=== PATIENT | male | born 1980 | race Caucasian/White ===

== ENCOUNTER 2018-10-02 16:06 | Inpatient (IN) | payer OTHER ==
[~2018-10-02] VITALS: Ht 180.3 cm; Wt 101.8 kg
--- NOTE | 2018-10-02 16:16 | NUR ---
PT TO ED WITH ELIZA FOR LOWER RIGHT ABD CELLULITIS AND LESION X3 DAYS. NO FEVER. PAIN 5/10. CONNECTED TO MONITORS. VSS. AWAITING MD ASSESSMENT. NO NEEDS AT THIS TIME. CALL LIGHT WITHIN REACH. ELIZA AT BEDSIDE.
--- NOTE | 2018-10-02 17:19 | NUR ---
Resting in [facility]. Provided with blanket. No other needs.
--- NOTE | 2018-10-02 17:50 | NUR ---
pt resting in room with meghan at bedside. no needs at this time. call light within reach. vss. awaiting md orders.
[2018-10-02] MEDS ORDERED: CLINDAMYCIN PMX 900MG/50ML 50 ML IV ONE (17:55)
[2018-10-02] MEDS ORDERED: SODIUM CHLORIDE FLUSH 10ML SYR IVF ONE (18:00)
[2018-10-02] MEDS ORDERED: HYDROmorphone 2 MG/ML, 1ML IVPush PRN (18:00)
[2018-10-02 18:28] LABS: MEAN CORPUSCULAR HEMOGLOBIN 29.1 pg (27.5-34.5); MEAN CORPUSCULAR HGB CONC 34.1 g/dL (33.2-36.2); MEAN CORPUSCULAR VOLUME 85.2 fL (81-97); MEAN PLATELET VOLUME 8.6 fL (7.4-10.4); PLATELET COUNT 328 x10^3/uL (130-400); RED BLOOD COUNT 5.47 x10^6/uL (4.38-5.82); RED CELL DISTRIBUTION WIDTH 13.7 % (9.4-14.8)
[2018-10-02] MEDS ORDERED: HYDROmorphone 1 MG/ML, 1ML ONE (18:28)
[2018-10-02] MEDS ORDERED: CLINDAMYCIN PMX 900MG/50ML 50 ML ONE (18:29)
[2018-10-02 18:40] LABS: ALANINE AMINOTRANSFERASE 31 U/L (12-78); ALBUMIN 3.6 g/dL (3.4-5.0); ANION GAP 7 mmol/L (5-15); CALCIUM 9.1 mg/dL (8.5-10.1); CHLORIDE 105 mmol/L (98-107); CREATININE 0.83 mg/dL (0.7-1.3)
[2018-10-02 18:42] LABS: ALKALINE PHOSPHATASE 92 U/L (45-117); TOTAL PROTEIN 8.5 g/dL (6.4-8.2)
[2018-10-02 18:46] LABS: BASOPHILS # (AUTO) 0.04 x10^3/uL (0-0.1); BASOPHILS % (AUTO) 0 % (0-1); EOSINOPHILS # (AUTO) 0.16 x10^3/uL (0-0.4); EOSINOPHILS % (AUTO) 1 % (1-7); LYMPHOCYTES # (AUTO) 1.63 x10^3/uL (1-3.4); LYMPHOCYTES % (AUTO) 8 % (22-44); MD SCAN; MONOCYTES # (AUTO) 1.71 x10^3/uL (0.2-0.8); MONOCYTES % (AUTO) 8 % (2-9); NEUTROPHILS # (AUTO) 17.83 x10^3/uL (1.8-6.8); NEUTROPHILS % (AUTO) 83 % (42-75)
[2018-10-02] MEDS: SODIUM CHLORIDE 0.9% 1,000 ML IV SCH (18:50)
--- NOTE | 2018-10-02 18:53 | NUR ---
PT ERSTING IN ROOM WITH ELIZA AT BEDSIDE. MEDICATED PER OCT. NO NEEDS AT THSI TIME. VSS. CALL LIGHT WITHIN REACH.
[2018-10-02] MEDS ORDERED: VANCOMYCIN PER PHARMACY MC PRN (19:00)
[2018-10-02] MEDS ORDERED: ONDANSETRON 2MG/ML, 2ML IVPush PRN (19:00)
[2018-10-02] MEDS ORDERED: BISACODYL 10 MG SUPP PR PRN (19:00)
[2018-10-02] MEDS ORDERED: ACETAMINOPHEN 325 MG TABLET PO PRN (19:00)
[2018-10-02] MEDS ORDERED: POTASSIUM CHLORIDE 20 MEQ TAB.ER.PRT PO ONE (19:00)
[2018-10-02] MEDS ORDERED: POLYETHYLENE GLYCOL 17 GM PACKET PO PRN (19:00)
[2018-10-02] MEDS ORDERED: PHARMACOKINETIC MONITORING MC PRN (20:00)
[2018-10-02] MEDS: KETOROLAC 30 MG/1 ML IV PRN (20:43)
[2018-10-02] MEDS: HEPARIN 5,000 UNITS/ML, 1ML SQ SCH (20:43)
[2018-10-02] MEDS: AMPICILLIN/SULBACTAM 3 GM in SODIUM CHLORIDE 0.9% 100 ML IV SCH (21:34)
[2018-10-02 21:55] VITALS: BP 127/76
[2018-10-02] MEDS: VANCOMYCIN 1,800 MG in SODIUM CHLORIDE 0.9% 250 ML IV SCH (22:38)
[2018-10-03 01:56] VITALS: BP 131/63
[2018-10-03] MEDS: AMPICILLIN/SULBACTAM 3 GM in SODIUM CHLORIDE 0.9% 100 ML IV SCH ×4 (03:37→22:22)
[2018-10-03] MEDS: HEPARIN 5,000 UNITS/ML, 1ML SQ SCH ×3 (04:40→21:04)
[2018-10-03 05:53] LABS: MEAN CORPUSCULAR HEMOGLOBIN 29.3 pg (27.5-34.5); MEAN CORPUSCULAR HGB CONC 34.2 g/dL (33.2-36.2); MEAN CORPUSCULAR VOLUME 85.6 fL (81-97); MEAN PLATELET VOLUME 8.5 fL (7.4-10.4); PLATELET COUNT 289 x10^3/uL (130-400); RED BLOOD COUNT 4.75 x10^6/uL (4.38-5.82); RED CELL DISTRIBUTION WIDTH 13.7 % (9.4-14.8)
[2018-10-03 06:03] LABS: CHLORIDE 107 mmol/L (98-107)
[2018-10-03 06:12] LABS: ALANINE AMINOTRANSFERASE 25 U/L (12-78); ALBUMIN 2.8 g/dL (3.4-5.0); ALKALINE PHOSPHATASE 79 U/L (45-117); ANION GAP 8 mmol/L (5-15); BILIRUBIN,TOTAL 1.2 mg/dL (0.2-1.0); CALCIUM 8.3 mg/dL (8.5-10.1); CREATININE 0.69 mg/dL (0.7-1.3); TOTAL PROTEIN 6.6 g/dL (6.4-8.2)
[2018-10-03 06:20] LABS: MD SCAN
[2018-10-03 06:22] LABS: BASOPHILS # (AUTO) 0.14 x10^3/uL (0-0.1); BASOPHILS % (AUTO) 1 % (0-1); EOSINOPHILS # (AUTO) 0.44 x10^3/uL (0-0.4); EOSINOPHILS % (AUTO) 2 % (1-7); LYMPHOCYTES % (AUTO) 9 % (22-44); MONOCYTES # (AUTO) 1.68 x10^3/uL (0.2-0.8); MONOCYTES % (AUTO) 9 % (2-9); NEUTROPHILS # (AUTO) 14.54 x10^3/uL (1.8-6.8); NEUTROPHILS % (AUTO) 79 % (42-75)
[2018-10-03] MEDS: SODIUM CHLORIDE 0.9% 1,000 ML IV SCH ×2 (06:48→20:23)
[2018-10-03 08:38] LABS: HCT (SEDRATE) 40.6 % (39.2-51.8)
[2018-10-03 09:59] VITALS: BP 122/72
[2018-10-03 10:11] VITALS: BP 122/72
[2018-10-03 10:17] LABS: AMPHETAMINE SCREEN, URINE Negative (Negative); BARBITURATE SCREEN, URINE Negative (Negative); BENZODIAZEPINE SCREEN, URINE Negative (Negative); CANNABINOID SCREEN, URINE Negative (Negative); COCAINE SCREEN, URINE Negative (Negative); METHADONE SCREEN, URINE Negative (Negative); OPIATE SCREEN, URINE Negative (Negative)
[2018-10-03] MEDS: SENNA/DOCUSATE TABLET PO SCH (10:22)
[2018-10-03] MEDS: KETOROLAC 30 MG/1 ML IV PRN ×2 (10:39→16:49)
[2018-10-03] MEDS: VANCOMYCIN 1,800 MG in SODIUM CHLORIDE 0.9% 250 ML IV SCH ×2 (11:04→23:10)
[2018-10-03 14:02] VITALS: BP 112/72
[2018-10-03 16:37] LABS: INTERNATIONAL NORMALIZED RATIO 1.02 (0.93-1.1); PROTHROMBIN TIME 10.8 Seconds (9.6-11.5)
[2018-10-03 20:00] VITALS: BP 128/68
[2018-10-03] MEDS: DIPHENHYDRAMINE 25 MG CAPSULE PO PRN (23:10)
[2018-10-04] MEDS: KETOROLAC 30 MG/1 ML IV PRN ×2 (02:14→08:05)
[2018-10-04 02:25] VITALS: BP 113/59
[2018-10-04] MEDS: AMPICILLIN/SULBACTAM 3 GM in SODIUM CHLORIDE 0.9% 100 ML IV SCH ×4 (04:34→22:46)
[2018-10-04] MEDS: HEPARIN 5,000 UNITS/ML, 1ML SQ SCH ×3 (04:39→21:14)
[2018-10-04 07:45] LABS: MEAN CORPUSCULAR HEMOGLOBIN 28.2 pg (27.5-34.5); MEAN CORPUSCULAR VOLUME 85.5 fL (81-97); MEAN PLATELET VOLUME 8.7 fL (7.4-10.4); PLATELET COUNT 315 x10^3/uL (130-400); RED BLOOD COUNT 4.42 x10^6/uL (4.38-5.82); RED CELL DISTRIBUTION WIDTH 13.7 % (9.4-14.8)
[2018-10-04 07:48] LABS: ANION GAP 6 mmol/L (5-15); CALCIUM 8.1 mg/dL (8.5-10.1); CHLORIDE 112 mmol/L (98-107); CREATININE 0.59 mg/dL (0.7-1.3)
[2018-10-04 08:00] VITALS: BP 113/65
[2018-10-04] MEDS: SENNA/DOCUSATE TABLET PO SCH (08:05)
[2018-10-04 08:09] LABS: BASOPHILS # (AUTO) 0.07 x10^3/uL (0-0.1); BASOPHILS % (AUTO) 1 % (0-1); EOSINOPHILS # (AUTO) 0.36 x10^3/uL (0-0.4); EOSINOPHILS % (AUTO) 3 % (1-7); LYMPHOCYTES % (AUTO) 14 % (22-44); MD SCAN; MONOCYTES # (AUTO) 1.18 x10^3/uL (0.2-0.8); MONOCYTES % (AUTO) 10 % (2-9); NEUTROPHILS # (AUTO) 8.24 x10^3/uL (1.8-6.8); NEUTROPHILS % (AUTO) 72 % (42-75)
[2018-10-04] MEDS: SODIUM CHLORIDE 0.9% 1,000 ML IV SCH (10:24)
[2018-10-04] MEDS: VANCOMYCIN 2,000 MG in SODIUM CHLORIDE 0.9% 500 ML IV SCH (12:43)
[2018-10-04] MEDS: LIDODERM 5% PATCH TD SCH (12:43)
[2018-10-04 12:48] VITALS: BP 118/45
[2018-10-04 20:26] VITALS: BP 120/59
[2018-10-04] MEDS: DIPHENHYDRAMINE 25 MG CAPSULE PO PRN (21:14)
[2018-10-05] MEDS: VANCOMYCIN 2,000 MG in SODIUM CHLORIDE 0.9% 500 ML IV SCH ×2 (00:06→12:56)
[2018-10-05 02:51] VITALS: BP 136/76
[2018-10-05] MEDS: AMPICILLIN/SULBACTAM 3 GM in SODIUM CHLORIDE 0.9% 100 ML IV SCH ×3 (04:38→17:40)
[2018-10-05] MEDS: HEPARIN 5,000 UNITS/ML, 1ML SQ SCH ×3 (04:38→22:30)
[2018-10-05] MEDS: SODIUM CHLORIDE 0.9% 1,000 ML IV SCH (04:38)
[2018-10-05] MEDS: KETOROLAC 30 MG/1 ML IV PRN ×2 (04:41→11:34)
[2018-10-05 04:58] LABS: MEAN CORPUSCULAR HEMOGLOBIN 28.4 pg (27.5-34.5); MEAN CORPUSCULAR HGB CONC 33.3 g/dL (33.2-36.2); MEAN CORPUSCULAR VOLUME 85.3 fL (81-97); MEAN PLATELET VOLUME 8.6 fL (7.4-10.4); PLATELET COUNT 329 x10^3/uL (130-400); RED BLOOD COUNT 4.51 x10^6/uL (4.38-5.82); RED CELL DISTRIBUTION WIDTH 13.6 % (9.4-14.8)
[2018-10-05 04:59] LABS: ANION GAP 6 mmol/L (5-15); CALCIUM 8.4 mg/dL (8.5-10.1); CHLORIDE 112 mmol/L (98-107)
[2018-10-05 05:00] LABS: CREATININE 0.67 mg/dL (0.7-1.3)
[2018-10-05 05:51] LABS: BASOPHILS # (AUTO) 0.05 x10^3/uL (0-0.1); BASOPHILS % (AUTO) 0 % (0-1); EOSINOPHILS # (AUTO) 0.51 x10^3/uL (0-0.4); EOSINOPHILS % (AUTO) 4 % (1-7); LYMPHOCYTES # (AUTO) 2.04 x10^3/uL (1-3.4); LYMPHOCYTES % (AUTO) 15 % (22-44); MD SCAN; MONOCYTES # (AUTO) 1.35 x10^3/uL (0.2-0.8); MONOCYTES % (AUTO) 10 % (2-9); NEUTROPHILS # (AUTO) 9.56 x10^3/uL (1.8-6.8); NEUTROPHILS % (AUTO) 71 % (42-75)
[2018-10-05] MEDS: SENNA/DOCUSATE TABLET PO SCH (08:36)
[2018-10-05 09:10] VITALS: BP 126/68
[2018-10-05] MEDS: LIDODERM 5% PATCH TD SCH (11:34)
[2018-10-05 14:26] VITALS: BP 124/71
[2018-10-05 19:29] VITALS: BP 124/75
[2018-10-06 00:21] VITALS: BP 135/78
[2018-10-06] MEDS: AMPICILLIN/SULBACTAM 3 GM in SODIUM CHLORIDE 0.9% 100 ML IV SCH ×3 (00:32→12:30)
[2018-10-06] MEDS: VANCOMYCIN 2,000 MG in SODIUM CHLORIDE 0.9% 500 ML IV SCH ×2 (01:17→12:00)
[2018-10-06] MEDS: DIPHENHYDRAMINE 25 MG CAPSULE PO PRN (02:12)
[2018-10-06] MEDS: SODIUM CHLORIDE 0.9% 1,000 ML IV SCH (04:41)
[2018-10-06 05:56] LABS: CHLORIDE 111 mmol/L (98-107)
[2018-10-06 06:06] LABS: ANION GAP 7 mmol/L (5-15); CALCIUM 8.6 mg/dL (8.5-10.1)
[2018-10-06 06:08] LABS: BASOPHILS # (AUTO) 0.09 x10^3/uL (0-0.1); BASOPHILS % (AUTO) 1 % (0-1); EOSINOPHILS # (AUTO) 0.41 x10^3/uL (0-0.4); EOSINOPHILS % (AUTO) 4 % (1-7); LYMPHOCYTES # (AUTO) 2.32 x10^3/uL (1-3.4); LYMPHOCYTES % (AUTO) 22 % (22-44); MD NO; MEAN CORPUSCULAR HEMOGLOBIN 29.3 pg (27.5-34.5); MEAN CORPUSCULAR HGB CONC 34.4 g/dL (33.2-36.2); MEAN PLATELET VOLUME 8.4 fL (7.4-10.4); MONOCYTES # (AUTO) 1.08 x10^3/uL (0.2-0.8); MONOCYTES % (AUTO) 10 % (2-9); NEUTROPHILS # (AUTO) 6.87 x10^3/uL (1.8-6.8); NEUTROPHILS % (AUTO) 64 % (42-75); PLATELET COUNT 372 x10^3/uL (130-400); RED BLOOD COUNT 4.68 x10^6/uL (4.38-5.82); RED CELL DISTRIBUTION WIDTH 13.6 % (9.4-14.8)
[2018-10-06] MEDS: HEPARIN 5,000 UNITS/ML, 1ML SQ SCH (06:35)
[2018-10-06 07:35] VITALS: BP 120/75
[2018-10-06] MEDS: SENNA/DOCUSATE TABLET PO SCH (09:00)
[2018-10-06] MEDS: LIDODERM 5% PATCH TD SCH (11:30)
[2018-10-06] MEDS ORDERED: DOXY100T9 PO (12:52)
[2018-10-06 12:53] VITALS: BP 135/70
[2018-10-06] MEDS ORDERED: CEPH-368 PO (12:53)
== END 2018-10-06 13:38 | disposition home or self-care (01) | DRG 603 ==
LOC: ED 18:03 → EDIP 18:14 → 4NOR 19:49
PROVIDERS: ADMIT Hospitalist; ATTEND Hospitalist
DX: L03.311 Cellulitis of abdominal wall (principal); L02.211 Cutaneous abscess of abdominal wall; F17.200 Nicotine dependence, unspecified, uncomplicated; E87.6 Hypokalemia; F11.90 Opioid use, unspecified, uncomplicated; B95.62 Methicillin resistant Staphylococcus aureus infection as the cause of diseases classified elsewhere
CPT/HCPCS: 36415; 76705; 80048; 80053; 80202; 80307; 83605; 84145; 85025; 85610; 85651; 85730; 86140; 87040; 87070; 87077; 87186; 87205; 96374; G0378; J0295; J1644; J1885; J3370; J7030; J7040; J7050; Q0163

== ENCOUNTER 2020-07-03 18:02 | Emergency (ER) | payer MEDICAID ==
[~2020-07-03] VITALS: Ht 177.8 cm; Wt 105.0 kg
[~2020-07-03 18:02] MED LIST: CEPH-368 PO; DOXY-162 PO
[2020-07-03] MEDS ORDERED: KETOROLAC 30 MG/1 ML ONE (18:27)
[2020-07-03] MEDS ORDERED: SODIUM CHLORIDE 0.9% 1,000ML IVBOLUS ONE (18:30)
[2020-07-03] MEDS ORDERED: SODIUM CHLORIDE FLUSH 10ML SYR IVF ONE (18:30)
[2020-07-03] MEDS ORDERED: KETOROLAC 30 MG/1 ML IVPush ONE (18:30)
[2020-07-03 18:41] LABS: BASOPHILS % (AUTO) 0 % (0-1); EOSINOPHILS % (AUTO) 1 % (1-7); LYMPHOCYTES % (AUTO) 5 % (22-44); MEAN CORPUSCULAR HEMOGLOBIN 28.9 pg (27.5-34.5); MEAN CORPUSCULAR HGB CONC 34.4 g/dL (33.2-36.2); MONOCYTES % (AUTO) 14 % (2-9); NEUTROPHILS % (AUTO) 80 % (42-75); PLATELET COUNT 277 x10^3/uL (130-400); RED BLOOD COUNT 5.14 x10^6/uL (4.38-5.82); RED CELL DISTRIBUTION WIDTH 13.2 % (9.4-14.8)
[2020-07-03 18:56] LABS: ALBUMIN 3.8 g/dL (3.4-5.0); ANION GAP 6 mmol/L (5-15); CHLORIDE 103 mmol/L (98-107)
[2020-07-03 19:01] LABS: CREATININE 0.87 mg/dL (0.7-1.3); TROPONIN I < 0.015 ng/mL (0.000-0.045)
[2020-07-03 19:22] VITALS: BP 125/70
[2020-07-03 19:47] LABS: MD SCAN
--- NOTE | 2020-07-03 20:00 | NUR ---
ALL RESULTS ARE BACK AT THIS TIME. CHART UP FOR RECHECK.
== END 2020-07-03 22:44 | disposition home or self-care (01) ==
LOC: ED 22:20
DX: R06.00 Dyspnea, unspecified (principal); Z20.828 Contact with and (suspected) exposure to other viral communicable diseases; R09.1 Pleurisy; R07.89 Other chest pain; R06.02 Shortness of breath; F17.210 Nicotine dependence, cigarettes, uncomplicated
CPT/HCPCS: 71045; 80048; 82040; 84484; 85025; 85379; 87635; 93005; 96374; 99285; 99406; J1885; J7030